=== PATIENT | male | born 1940 | race Caucasian/White ===

== ENCOUNTER → 2018-08-15 16:02 | Outpatient (CLI) | payer MEDICARE, OTHER, SELFPAY ==
[2018-08-15 18:20] LABS: D Dimer 898 ng/mL (<230)
[2018-08-15 18:27] LABS: Erythrocyte Sedimentation Rate 14 MM/HR (0-15)
[2018-08-15 18:29] LABS: Fibrinogen 323 mg/dL (211-428)
[2018-08-15 18:38] LABS: Creatine Kinase 88 U/L (55-170)
[2018-08-15 18:54] LABS: C-Reactive Protein Quant < 0.5 mg/dL (<1.0)
== END ==
PROVIDERS: Family Provider Family Medicine; PCP Student in an Organized Health Care Education/Training Program; Visit Provider Student in an Organized Health Care Education/Training Program
DX: I26.99 Other pulmonary embolism without acute cor pulmonale (principal); R68.89 Other general symptoms and signs
CPT/HCPCS: 36415; 82550; 85379; 85384; 85651; 86140

== ENCOUNTER → 2018-08-21 09:49 | Outpatient (CLI) | payer MEDICARE, OTHER, SELFPAY ==
--- NOTE | 2018-08-21 | DI.CT.S_ITS ---
PROCEDURE: CT ANGIO CHEST PE PROTOCOL INDICATIONS: SHORTNESS OF BREATH TECHNIQUE: After the administration of intravenous contrast, 2 mm thick sections acquired from the pulmonary apices to the posterior costophrenic angles. 3-dimensional maximum intensity projection (MIP) coronal and sagittal reformats were then acquired through the thorax. For radiation dose reduction, the following was used: automated exposure control, adjustment of mA and/or kV according to patient size. COMPARISON: None. FINDINGS: Image quality: Excellent. Pulmonary arteries: Pulmonary arteries are normal in size, and demonstrate no intraluminal filling defects to suggest central pulmonary embolism. Lungs and pleura: Lungs are mildly edematous. No pleural effusions or pneumothorax. Central and peripheral airways are patent. Mediastinum: Heart size is normal, without pericardial effusion. No mediastinal or hilar adenopathy. Thoracic aorta is normal in caliber and enhancement. Esophagus is normal in caliber, without hiatal hernia. Bones and chest wall: No suspicious bony lesions. Ribs and thoracic spine appear intact throughout. Thyroid gland appears normal where well seen. No axillary or supraclavicular adenopathy. Abdomen: Visualized upper abdominal solid organs appear normal in the early arterial phase of enhancement. IMPRESSION: Mild pulmonary edema pattern, no pleural effusion found. No pulmonary embolus identified. The Dictated by: Jesse Salas M.D. on 08/21/2018 at 10:58 Approved by: Jesse Salas M.D. on 08/21/2018 at 11:05
[2018-08-21 11:26] LABS: Blood Urea Nitrogen 18 mg/dL (9-20); Estimated Glomerular Filt Rate > 60.0 mL/min (>60)
== END ==
PROVIDERS: PCP Student in an Organized Health Care Education/Training Program; Visit Provider Student in an Organized Health Care Education/Training Program
DX: Z01.812 Encounter for preprocedural laboratory examination (principal); R06.02 Shortness of breath; J81.1 Chronic pulmonary edema
CPT/HCPCS: 36415; 71275; 82565; 84520; Q9967

== ENCOUNTER → 2018-10-07 07:48 | Outpatient (CLI) | payer MEDICARE, OTHER, SELFPAY ==
--- NOTE | 2018-10-07 07:49 | DI.ECHO.S_ITS ---
[place] [facility]---------+ [facility] +---------+ : : [address] : : : : [id number] : : : : Phone: [phone]+ Echocardiogram Report + + :Name: ORESTES AYALA Study Date: 10/07/2018 Height: 70 in : :[facility] Weight: 183 lb : : Gender: Male BSA: 2.0 m2 : :: 1940 Age: 78 yrs BP: 130/62 mmHg: :Reason For Study: SOB : : Performed By: Landy Gonsalez : :Referring: MURPHY GILBERT : + + Interpretation Summary The left ventricle is normal in size. The ejection fraction is estimated to be 55-60%. Diastolic parameters suggest a relaxation abnormality of the left ventricle, consistent with probable normal filling pressures. The right ventricle is normal in size and function. There is mild mitral regurgitation. There is mild aortic regurgitation. Pulmonary artery pressures cannot be estimated because of the lack of a measurable TR jet velocity but the IVC suggests a CVP of around 3 mmHg. The ascending aorta is mild-moderately enlarged without signfiicant change from the prior echo. Comparison is made with the echocardiogram of 08/12/14. No significant change. Procedure: A two-dimensional transthoracic echocardiogram with color flow and Doppler was performed. The study quality was technically adequate. Comparison is made with the echocardiogram of 08/12/14. The patient was in normal sinus rhythm during the exam. The patient had occasional PVCs during the exam. Left Ventricle: The left ventricle is normal in size. Left ventricular wall thickness is borderline increased. The ejection fraction is estimated to be 55-60%. There are no obvious focal wall motion abnormalities noted but poor endocardial definition reduces the sensitivity for the detection of such. Diastolic parameters suggest a relaxation abnormality of the left ventricle, consistent with probable normal filling pressures. Right Ventricle: The right ventricle is normal in size and function. Atria: The left atrium is borderline dilated. The right atrium is normal in size. There is no Doppler evidence for an interatrial shunt. Mitral Valve: The mitral valve leaflets appear normal. There is no evidence of stenosis, fluttering, or prolapse. There is mild mitral valve prolapse. There is prolapse of the posterior mitral valve leaflet(s). There is mild mitral regurgitation. Aortic Valve: The aortic valve is trileaflet. There is mild aortic valve sclerosis. The aortic valve opens well. There is no aortic valve stenosis. There is mild aortic regurgitation. Tricuspid Valve: The tricuspid valve is normal. There is mild tricuspid regurgitation. Pulmonary artery pressures cannot be estimated because of the lack of a measurable TR jet velocity but the IVC suggests a CVP of around 3 mmHg. Pulmonic Valve: The pulmonic valve is not well seen, but is grossly normal. There is trace pulmonic regurgitation. Great Vessels: The aortic root is normal size. The ascending aorta is mild- moderately enlarged. The aortic arch is normal in size. The pulmonary is not well visualized. The IVC is of normal diameter and collapses greater than 50% with a sniff. This suggests a low right atrial pressure of 3 mm Hg. Pericardium/ Pleura There is no pericardial effusion. There is no pleural effusion. MMode/2D Measurements & Calculations LVIDd: 4.6 cm LVOT diam: 2.0 cm LVIDs: 2.6 cm Ao root diam: 3.5 cm FS: 44.0 % asc Aorta Diam: 4.1 cm EPSS: 0.83 cm Ao Arch Diam (Prox Trans): 2.7 cm IVSd: 1.1 cm LVPWd: 0.89 cm LV bradford. diameter/BSA (cm/m^2): 2.3 LV sys. diameter/BSA (cm/m^2): 1.3 LA A2 area: 24.0 cm2 RA long axis: 4.9 cm LA A4 area: 26.7 cm2 RA area: 20.0 cm2 LA length (vol): 6.3 cm RA vol: 69.0 ml LA vol: 86.7 ml RA : 34.3 ml/m2 LA vol index: 43.1 ml/m2 IVC diam: 1.1 cm RVD1 (basal): 4.5 cm RVD2 (mid): 3.3 cm TAPSE: 2.7 cm Doppler Measurements & Calculations Ao V2 max: 134.7 cm/sec LVOT Max Dylan: 83.7 cm/sec Ao V2 mean: 93.3 cm/sec LV V1 max P.8 mmHg Ao max P.3 mmHg LV V1 VTI: 19.7 cm Ao mean P.9 mmHg PORSCHE(I,D): 2.2 cm2 Ao V2 VTI: 30.0 cm PORSCHE(V,D): 2.0 cm2 sev ratio: 0.66 PORSCHE indexed to BSA (cm^2/m^2): 1.1 AI P1/2t: 921.4 msec AI dec slope: 117.7 cm/sec2 MV E max dylan: 59.5 cm/sec TR max dylan: 215.2 cm/sec MV A max dylan: 78.4 cm/sec TR max P.5 mmHg MV E/A: 0.76 PA V2 max: 64.5 cm/sec Med Peak E' Dylan: 4.6 cm/sec PA V2 mean: 41.6 cm/sec E/E' med: 13.0 PA mean P.79 mmHg Lat Peak E' Dylan: 5.6 cm/sec PA Accel Time: 0.10 sec E/E' lat: 10.7 E/e' average: 11.8 MV P1/2t: 62.2 msec MV P1/2t max dylan: 59.5 cm/sec SV(LVOT): 64.7 ml MVA(P1/2t): 3.5 cm2 Electronically signed by: Alcon Chau M.D. on Reading Physician:10/07/2018 10:28 PM
== END ==
PROVIDERS: PCP Student in an Organized Health Care Education/Training Program; Visit Provider Student in an Organized Health Care Education/Training Program
DX: I08.3 Combined rheumatic disorders of mitral, aortic and tricuspid valves (principal); I77.89 Other specified disorders of arteries and arterioles; R06.02 Shortness of breath
CPT/HCPCS: 93306

== ENCOUNTER → 2019-03-12 16:37 | Outpatient (CLI) | payer MEDICARE, OTHER, SELFPAY ==
[2019-03-18 14:21] LABS: Acetylcholine receptor antibod <1
== END ==
PROVIDERS: PCP Student in an Organized Health Care Education/Training Program; Visit Provider Student in an Organized Health Care Education/Training Program
DX: R06.02 Shortness of breath (principal)
CPT/HCPCS: 36415; 83519

== ENCOUNTER → 2019-10-06 13:19 | Outpatient (CLI) | payer MEDICARE, OTHER, SELFPAY ==
[2019-10-06 15:43] LABS: Vitamin B12 629 pg/mL (239-931)
== END ==
PROVIDERS: PCP Student in an Organized Health Care Education/Training Program; Referring Provider Student in an Organized Health Care Education/Training Program; Visit Provider Student in an Organized Health Care Education/Training Program
DX: R06.02 Shortness of breath (principal); R53.83 Other fatigue
CPT/HCPCS: 36415; 82607

== ENCOUNTER → 2020-12-14 15:06 | Outpatient (CLI) | payer MEDICARE, OTHER, SELFPAY ==
[2020-12-14 17:23] LABS: BUN Creatinine Ratio 22.9 (6-22); Blood Urea Nitrogen 22 mg/dL (9-20); Calcium 9.4 mg/dL (8.4-10.2); Carbon Dioxide 28 mmol/L (22-32); Chloride 106 mmol/L (98-107); Creatine Kinase 82 U/L (55-170); Estimated Glomerular Filt Rate > 60.0 mL/min (>60); Glucose 88 mg/dL (80-110); HEMOLYSIS 31 (0-50); Potassium 4.1 mmol/L (3.4-5.1); Sodium 141 mmol/L (137-145)
[2020-12-14 17:56] LABS: Testosterone 254 ng/dL (71.8-623)
[2020-12-15 17:45] LABS: Calcium 9.3 mg/dL (8.6-10.2); Parathyroid Hormone, Intact 36 pg/mL (15-65); RNP Antibodies 0.3 AI (0.0-0.9)
== END ==
PROVIDERS: PCP Student in an Organized Health Care Education/Training Program; Referring Provider Student in an Organized Health Care Education/Training Program; Visit Provider Student in an Organized Health Care Education/Training Program
DX: M62.81 Muscle weakness (generalized) (principal); R06.02 Shortness of breath; Z79.1 Long term (current) use of non-steroidal anti-inflammatories (NSAID)
CPT/HCPCS: 80048; 82310; 82550; 83970; 84403; 86235

== ENCOUNTER → 2021-05-26 15:31 | Outpatient (CLI) | payer MEDICARE, OTHER, SELFPAY ==
[2021-05-26 16:05] LABS: COVID19 -Nasal RAPID Negative (Negative)
== END ==
PROVIDERS: PCP Student in an Organized Health Care Education/Training Program; Visit Provider Physician Assistant
DX: Z20.822 Contact with and (suspected) exposure to COVID-19 (principal)
CPT/HCPCS: 87635

== ENCOUNTER → 2021-06-16 08:30 | Outpatient (CLI) | payer MEDICARE, OTHER, SELFPAY ==
--- NOTE | 2021-06-16 08:32 | DI.MRI.S_ITS ---
PROCEDURE: MR LUMBAR SPINE WO CON INDICATIONS: Low back pain with radicular sx and neuroclaudication TECHNIQUE: Noncontrast sagittal T1 spin echo and T2 fast echo, sagittal STIR, axial T1 and T2 fast spin echo through the lumbar spine. In cases with scoliosis, additional coronal T2 fast spin echo may be performed. COMPARISON: None. FINDINGS: Image quality: Excellent. Alignment and Curvature: S-shaped scoliotic curvature is seen. There is minimal retrolisthesis at L1-L2, with mild retrolisthesis at L2-L3 and minimal retrolisthesis at L3-L4. Bone Marrow: Marrow is of normal overall signal. No acute vertebral body compression fractures. Spinal Cord: Conus medullaris terminates at the L1 level. Visualized cord demonstrates normal signal and size. Paraspinous Soft Tissues: No paravertebral masses. Incidental note is made of a circumaortic left renal vein. T12-L1: Moderate loss of disc height is seen. Loss of disc signal is seen. Partially bridging anterior osteophytes are seen. No significant neural foraminal or central canal narrowing can be seen. L1-L2: At least moderate loss of disc height and disc signal can be seen. Reactive marrow endplate changes are seen, which are hyperintense on T1-weighted and T2-weighted imaging and most consistent with fatty metaplasia (Modic type II changes). Bridging endplate osteophytes are seen. Mild generalized disc bulge is seen. Moderate bilateral neural foraminal narrowing can be seen, left worse than right. Minimal central canal narrowing is seen. L2-L3: At least moderate loss of disc height and disc signal can be seen. Reactive marrow endplate changes are seen, which are hyperintense on T1-weighted and T2-weighted imaging and most consistent with fatty metaplasia (Modic type II changes). Moderate generalized disc bulge is seen. There is a superimposed central disc protrusion. At least moderate facet hypertrophy can be seen. Fluid is seen within the facet joints themselves. There is at least moderate bilateral neural foraminal narrowing seen, right worse than. Moderate central canal narrowing is seen. L3-L4: At least moderate loss of disc height and disc signal can be seen. Reactive marrow endplate changes are seen, which are hyperintense on T1-weighted and T2-weighted imaging and most consistent with fatty metaplasia (Modic type II changes). Moderate generalized disc bulge is seen. Moderate to prominent facet hypertrophy is seen. There is at least moderate bilateral neural foraminal narrowing seen, left worse than right. A minimal degree of compression can be seen upon the exiting L3 nerve roots. Moderate central canal narrowing is seen. L4-L5: At least moderate loss of disc height and disc signal can be seen. Reactive marrow endplate changes are seen, which are hyperintense on T1-weighted and T2-weighted imaging and most consistent with fatty metaplasia (Modic type II changes). Mild to moderate disc bulge is seen. Moderate facet joint hypertrophy is seen. There is moderate to severe left-sided and at least moderate right-sided neural foraminal narrowing seen. A degree of compression can be seen upon the exiting L4 nerve roots, left worse than right. Moderate central canal narrowing is seen. L5-S1: The disc height is well-preserved. Loss of disc signal is seen at this level. Milder degenerative changes are seen elsewhere. At least moderate facet hypertrophy is seen, left worse than right. There is at least moderate bilateral neural foraminal narrowing seen at this level. A mild degree of compression can be seen upon the exiting L5 nerve roots. Moderate central canal narrowing is seen. IMPRESSION: Multiple levels of relatively prominent lumbar spine degenerative change can be seen. Dictated by: Tommy Boyce M.D. on 06/16/2021 at 10:11 Approved by: Tommy Boyce M.D. on 06/16/2021 at 10:16
== END ==
PROVIDERS: PCP Student in an Organized Health Care Education/Training Program; Referring Provider Student in an Organized Health Care Education/Training Program; Visit Provider Student in an Organized Health Care Education/Training Program
DX: M47.26 Other spondylosis with radiculopathy, lumbar region (principal); M47.27 Other spondylosis with radiculopathy, lumbosacral region; M48.062 Spinal stenosis, lumbar region with neurogenic claudication
CPT/HCPCS: 72148

== ENCOUNTER → 2021-07-01 08:06 | Outpatient (CLI) | payer MEDICARE, OTHER, SELFPAY ==
--- NOTE | 2021-07-01 08:08 | DI.MRI.S_ITS ---
PROCEDURE: MR CERVICAL SPINE WO CON INDICATIONS: Worsening sensory and motor sx of arms and chest TECHNIQUE: Noncontrast sagittal T1 spin echo and T2 fast spin echo, sagittal STIR, foraminal oblique sagittal T2 fast spin echo, and axial gradient echo or T2 fast spin echo through the cervical spine. COMPARISON: [facility], MR, MR LUMBAR SPINE WO CON, 06/16/2021, 8:48. [facility], MR, MR THORACIC SPINE WO CON, 07/01/2021, 8:55. FINDINGS: Image quality: This examination is limited by involuntary motion artifact. Alignment and Curvature: There is straightening of the normal cervical lordosis. No focal AP alignment abnormality is seen. Bone Marrow: Marrow demonstrates normal overall signal. Spinal Cord: Visualized spinal cord has normal size and signal. No cerebellar tonsillar herniation. Paraspinous Soft Tissues: No paravertebral masses. Prevertebral soft tissues are normal in thickness. C2-C3: The disc height is well-preserved. Loss of disc signal is seen at this level. A mild degree of generalized disc osteophyte complex is seen. There is moderate left-sided and mild right-sided facet hypertrophy seen. No significant neural foraminal or central canal narrowing can be seen. C3-C4: Moderate to severe loss of disc height and disc signal can be seen. At least moderate disc osteophyte complex is seen, with a central disc osteophyte protrusion. There is moderate right-sided and moderate to severe left-sided neural foraminal narrowing. Moderate bilateral neural foraminal narrowing is seen. Mild to moderate central canal narrowing is seen. There is associated mass effect upon the ventral spinal cord. C4-C5: Moderate loss of disc height is seen. Loss of disc signal is seen. At least moderate disc osteophyte complex is seen, which is eccentric to the left side. Uncovertebral joint hypertrophy is seen at this level. At least moderate facet hypertrophy is seen at this level. There is moderate to severe bilateral neural foraminal narrowing seen, left worse than right. Moderate to severe central canal narrowing is seen, with associated ventral cord flattening. C5-C6: Moderate loss of disc height is seen. Loss of disc signal is seen. At least moderate disc osteophyte complex is seen, with a central/right disc osteophyte protrusion. Uncovertebral joint hypertrophy is seen at this level. Mild to moderate facet hypertrophy is seen. There is moderate to severe bilateral neural foraminal narrowing seen. At least moderate central canal narrowing is seen. There is associated mass effect upon the ventral spinal cord. C6-C7: Moderate loss of disc height is seen. Loss of disc signal is seen. At least moderate disc osteophyte complex is seen, with a central disc osteophyte protrusion. Uncovertebral joint hypertrophy is seen at this level. Mild to moderate facet hypertrophy is seen at this level. There is moderate to severe left-sided and at least moderate right-sided neural foraminal narrowing. Moderate central canal narrowing is seen. There is associated mass effect upon the ventral spinal cord. C7-T1: Moderate loss of disc height is seen. Loss of disc signal is seen. At least moderate disc osteophyte complex is seen, which is eccentric to the left. There is a left foraminal disc osteophyte protrusion seen, as on series four image 36. There is moderate to severe bilateral neural foraminal narrowing seen. Mild to moderate central canal narrowing is seen at this level. IMPRESSION: Multiple levels of relatively prominent cervical spine degenerative change are seen, which are overall worst at the C4-C5 level. Straightening of the normal cervical lordosis is seen, which is commonly observed in patients with muscular spasm. Dictated by: Tommy Boyce M.D. on 07/01/2021 at 9:08 Approved by: Tommy Boyce M.D. on 07/01/2021 at 9:13
--- NOTE | 2021-07-01 08:08 | DI.MRI.S_ITS ---
PROCEDURE: MR THORACIC SPINE WO CON INDICATIONS: Worsening sensory and motor sx of arms and chest TECHNIQUE: Noncontrast sagittal T1 spine echo and T2 fast spin echo, sagittal STIR, axial T1 and T2 fast spin echo through the thoracic spine. COMPARISON: None. FINDINGS: Image quality: Excellent. Alignment and Curvature: There is normal bony alignment. Bone Marrow: Marrow is of normal overall signal. No acute vertebral body compression fractures. Spinal Cord: There is slight dilatation of the spinal cord central canal to 1-2 millimeters from level of the T4-T9 vertebral bodies. Paraspinous Soft Tissues: No paravertebral masses. Miscellaneous: Mild degenerative disc changes noted throughout the thoracic spine. Mild facet arthropathy noted throughout the mid and lower thoracic spine. No central canal narrowing. Moderate right and mild left T10-T11 neural foraminal narrowing. No neural compression. IMPRESSION: 1. 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 Recommend MRI of the thoracic spine with contrast for additional evaluation. 2. Multilevel degenerative disc disease. 3. Multilevel facet arthropathy. 4. No severe central canal narrowing. 5. No severe neural foraminal narrowing. 6. No neural compression. Dictated by: Janell Hilario MD, PhD on 07/01/2021 at 11:41 Approved by: Janell Hilario MD, PhD on 07/01/2021 at 12:00
== END ==
PROVIDERS: PCP Student in an Organized Health Care Education/Training Program; Referring Provider Student in an Organized Health Care Education/Training Program; Visit Provider Student in an Organized Health Care Education/Training Program
DX: M47.814 Spondylosis without myelopathy or radiculopathy, thoracic region (principal); M47.812 Spondylosis without myelopathy or radiculopathy, cervical region; M48.062 Spinal stenosis, lumbar region with neurogenic claudication; M51.34 Other intervertebral disc degeneration, thoracic region; M48.04 Spinal stenosis, thoracic region; R20.2 Paresthesia of skin; R29.898 Other symptoms and signs involving the musculoskeletal system
CPT/HCPCS: 72141; 72146

== ENCOUNTER → 2021-08-26 13:34 | Outpatient (CLI) | payer MEDICARE, OTHER, SELFPAY ==
[2021-08-26 13:49] LABS: Add Manual Diff / Slide Review NO; Basophils Absolute Auto 0 /uL (0-100); Basophils Percent Auto 0.3 % (0-2); Eosinophils Absolute Auto 0 /uL (0-450); Eosinophils Percent Auto 0.2 % (2-4); Hematocrit 40.5 % (41-53); Hemoglobin 13.9 g/dL (13.5-17.5); Lymphocytes Absolute Auto 1600 /uL (1100-4500); Lymphocytes Percent Auto 18.9 % (25-40); Mean Corpuscular HGB Conc 34.4 % (30-36); Mean Corpuscular Hemoglobin 31.1 PG (26-34); Mean Corpuscular Volume 90.3 fL (80-100); Monocytes Absolute Auto 400 /uL (0-900); Monocytes Percent Auto 5.1 % (3-14); Neutrophils Absolute Auto 6200 /uL (1500-7000); Neutrophils Percent Auto 75.5 % (50-75); Platelet Count 256 X10^3/uL (150-400); Red Blood Cell Count 4.48 X10^6/uL (4.5-5.9); Red Cell Distribution Width 13.9 % (11.6-14.8); White Blood Cell Count 8.2 X10^3/uL (4.5-11.0)
[2021-08-26 14:07] LABS: Erythrocyte Sedimentation Rate 61 MM/HR (0-15)
[2021-08-26 14:08] LABS: C-Reactive Protein Quant 1.9 mg/dL (<1.0)
== END ==
PROVIDERS: PCP Student in an Organized Health Care Education/Training Program; Referring Provider Neurological Surgery; Visit Provider Neurological Surgery
DX: M53.3 Sacrococcygeal disorders, not elsewhere classified (principal)
CPT/HCPCS: 36415; 85025; 85651; 86140

== ENCOUNTER → 2022-02-14 08:52 | Outpatient (CLI) | payer MEDICARE, OTHER, SELFPAY ==
[2022-02-14 10:05] LABS: Erythrocyte Sedimentation Rate 17 MM/HR (0-15)
[2022-02-14 11:12] LABS: Alanine Aminotransferase 23 IU/L (<50); Albumin 3.7 g/dL (3.5-5.0); Albumin Globulin Ratio 1.2 (1.0-2.8); Alkaline Phosphatase 52 U/L (38-126); Aspartate Aminotransferase 26 IU/L (17-59); Bilirubin Total 0.5 mg/dL (0.2-1.3); Blood Urea Nitrogen 18 mg/dL (9-20); C-Reactive Protein Quant < 0.5 mg/dL (<1.0); Carbon Dioxide 28 mmol/L (22-32); Chloride 108 mmol/L (98-107); Cholesterol 225 mg/dL (140-199); Estimated Glomerular Filt Rate > 60 mL/min (>60); Globulin 3.2 g/dL (1.7-4.1); Glucose 87 mg/dL (80-110); HDL Cholesterol 62 mg/dL (40-60); HEMOLYSIS < 15 (0-50); LDL Cholesterol Calculated 143 mg/dL (<100); Potassium 3.7 mmol/L (3.4-5.1); Sodium 140 mmol/L (137-145); Total Protein 6.9 g/dL (6.3-8.2); Triglycerides 102 mg/dL (35-150)
[2022-02-14 11:38] LABS: TSH w/ Reflex to FT4 2.72 uIU/mL (0.47-4.68)
== END ==
PROVIDERS: PCP Internal Medicine; Referring Provider Internal Medicine; Visit Provider Internal Medicine
DX: I10 Essential (primary) hypertension (principal); E78.2 Mixed hyperlipidemia; M35.3 Polymyalgia rheumatica
CPT/HCPCS: 36415; 80053; 80061; 84443; 85651; 86140

== ENCOUNTER → 2022-09-06 11:29 | Outpatient (CLI) | payer MEDICARE, OTHER, SELFPAY ==
[2022-09-06 11:43] LABS: Hematocrit 44.2 % (41-53); Hemoglobin 14.9 g/dL (13.5-17.5); Mean Corpuscular HGB Conc 33.8 % (30-36); Mean Corpuscular Hemoglobin 31.5 PG (26-34); Mean Corpuscular Volume 93.3 fL (80-100); Platelet Count 268 X10^3/uL (150-400); Red Blood Cell Count 4.74 X10^6/uL (4.5-5.9); Red Cell Distribution Width 13.9 % (11.6-14.8); White Blood Cell Count 8.7 X10^3/uL (4.5-11.0)
[2022-09-06 11:59] LABS: Erythrocyte Sedimentation Rate 12 MM/HR (0-15)
[2022-09-06 12:23] LABS: Alanine Aminotransferase 35 IU/L (<50); Albumin 4.2 g/dL (3.5-5.0); Albumin Globulin Ratio 1.2 (1.0-2.8); Alkaline Phosphatase 54 U/L (38-126); Aspartate Aminotransferase 32 IU/L (17-59); BUN Creatinine Ratio 29.8 (6-22); Bilirubin Total 0.7 mg/dL (0.2-1.3); Blood Urea Nitrogen 25 mg/dL (9-20); C-Reactive Protein Quant < 0.5 mg/dL (<1.0); Calcium 9.4 mg/dL (8.4-10.2); Carbon Dioxide 23 mmol/L (22-32); Chloride 108 mmol/L (98-107); Cholesterol 239 mg/dL (140-199); Estimated Glomerular Filt Rate > 60 mL/min (>60); Globulin 3.4 g/dL (1.7-4.1); Glucose 145 mg/dL (80-110); HDL Cholesterol 79 mg/dL (40-60); HEMOLYSIS < 15 (0-50); LDL Cholesterol Calculated 134 mg/dL (<100); Potassium 4.2 mmol/L (3.4-5.1); Sodium 141 mmol/L (137-145); Total Protein 7.6 g/dL (6.3-8.2); Triglycerides 130 mg/dL (35-150)
== END ==
PROVIDERS: PCP Internal Medicine; Referring Provider Internal Medicine; Visit Provider Internal Medicine
DX: E78.2 Mixed hyperlipidemia (principal); I10 Essential (primary) hypertension; M35.3 Polymyalgia rheumatica
CPT/HCPCS: 36415; 80053; 80061; 85027; 85651; 86140

== ENCOUNTER → 2023-07-26 10:09 | Outpatient (CLI) | payer MEDICARE, OTHER, SELFPAY ==
[2023-07-26 10:57] LABS: Hematocrit 42.9 % (41-53); Hemoglobin 14.6 g/dL (13.5-17.5); Mean Corpuscular HGB Conc 34.1 % (30-36); Mean Corpuscular Hemoglobin 31.5 PG (26-34); Mean Corpuscular Volume 92.3 fL (80-100); Platelet Count 247 X10^3/uL (150-400); Red Blood Cell Count 4.65 X10^6/uL (4.5-5.9); Red Cell Distribution Width 13.8 % (11.6-14.8); White Blood Cell Count 7.1 X10^3/uL (4.5-11.0)
[2023-07-26 11:19] LABS: Erythrocyte Sedimentation Rate 10 MM/HR (0-15)
[2023-07-26 11:36] LABS: Alanine Aminotransferase 16 IU/L (<50); Albumin 4.2 g/dL (3.5-5.0); Albumin Globulin Ratio 1.2 (1.0-2.8); Alkaline Phosphatase 63 U/L (38-126); Aspartate Aminotransferase 26 IU/L (17-59); BUN Creatinine Ratio 19.8 (6-22); Bilirubin Total 0.8 mg/dL (0.2-1.3); Blood Urea Nitrogen 18 mg/dL (9-20); C-Reactive Protein Quant < 0.5 mg/dL (<1.0); Calcium 9.2 mg/dL (8.4-10.2); Carbon Dioxide 26 mmol/L (22-32); Chloride 107 mmol/L (98-107); Cholesterol 211 mg/dL (140-199); Estimated Glomerular Filt Rate > 60 mL/min (>60); Globulin 3.4 g/dL (1.7-4.1); Glucose 96 mg/dL (80-110); HDL Cholesterol 44 mg/dL (40-60); HEMOLYSIS < 15 (0-50); LDL Cholesterol Calculated 133 mg/dL (<100); Potassium 4.1 mmol/L (3.4-5.1); Sodium 143 mmol/L (137-145); Total Protein 7.6 g/dL (6.3-8.2); Triglycerides 169 mg/dL (35-150)
[2023-07-26 11:55] LABS: Prostate Specific Antigen 0.687 ng/mL (0.10-4.00)
[2023-07-26 12:04] LABS: TSH w/ Reflex to FT4 2.64 uIU/mL (0.47-4.68)
== END ==
PROVIDERS: PCP Internal Medicine; Referring Provider Internal Medicine; Visit Provider Internal Medicine
DX: M06.00 Rheumatoid arthritis without rheumatoid factor, unspecified site (principal); E78.5 Hyperlipidemia, unspecified; N40.0 Benign prostatic hyperplasia without lower urinary tract symptoms; M35.3 Polymyalgia rheumatica; E78.2 Mixed hyperlipidemia
CPT/HCPCS: 36415; 80053; 80061; 84153; 84443; 85027; 85651; 86140

== ENCOUNTER → 2024-04-16 13:34 | Outpatient (CLI) | payer MEDICARE, OTHER, SELFPAY ==
[2024-04-16 14:16] LABS: Hemoglobin A1C% w Est Avg Glu 5.2 % (4.0-6.0)
[2024-04-16 14:37] LABS: BUN Creatinine Ratio 18.7 (6-22); Blood Urea Nitrogen 17 mg/dL (9-20); Calcium 9.6 mg/dL (8.4-10.2); Carbon Dioxide 26 mmol/L (22-32); Chloride 107 mmol/L (98-107); Estimated Glomerular Filt Rate > 60 mL/min (>60); Glucose 126 mg/dL (80-110); HEMOLYSIS < 15 (0-50); Potassium 4.5 mmol/L (3.4-5.1); Sodium 140 mmol/L (137-145)
[2024-04-16 15:08] LABS: TSH w/ Reflex to FT4 1.58 uIU/mL (0.47-4.68)
[2024-04-16 15:25] LABS: Vitamin B12 Reflex MMA if <400 412 pg/mL (239-931)
[2024-04-21 14:38] LABS: Albumin 3.9 g/dL (2.9-4.4); Alpha-1-Globulin 0.2 g/dL (0.0-0.4); Alpha-2-Globulin 0.6 g/dL (0.4-1.0); Gamma Globulin 1.2 g/dL (0.4-1.8); Protein, Total 6.9 g/dL (6.0-8.5)
== END ==
PROVIDERS: PCP Internal Medicine; Referring Provider Internal Medicine; Visit Provider Internal Medicine
DX: R73.01 Impaired fasting glucose (principal); E78.2 Mixed hyperlipidemia; R77.9 Abnormality of plasma protein, unspecified; E53.8 Deficiency of other specified B group vitamins; M06.00 Rheumatoid arthritis without rheumatoid factor, unspecified site; M35.3 Polymyalgia rheumatica; I10 Essential (primary) hypertension; J30.9 Allergic rhinitis, unspecified; H90.3 Sensorineural hearing loss, bilateral; K59.01 Slow transit constipation; G62.9 Polyneuropathy, unspecified
CPT/HCPCS: 36415; 80048; 82607; 83036; 84155; 84165; 84443

== ENCOUNTER → 2024-06-12 09:31 | Outpatient (CLI) | payer MEDICARE, OTHER, SELFPAY ==
[2024-06-14 15:08] LABS: ANA Screen, IFA Positive (.)
== END ==
PROVIDERS: PCP Internal Medicine; Referring Provider Internal Medicine; Visit Provider Internal Medicine
DX: M35.3 Polymyalgia rheumatica (principal); M06.00 Rheumatoid arthritis without rheumatoid factor, unspecified site
CPT/HCPCS: 36415; 86038

== ENCOUNTER → 2024-08-11 09:44 | Outpatient (CLI) | payer MEDICARE, OTHER, SELFPAY ==
[2024-08-11 10:21] LABS: Hematocrit 41.7 % (41-53); Hemoglobin 14.5 g/dL (13.5-17.5); Mean Corpuscular HGB Conc 34.8 % (30-36); Mean Corpuscular Volume 94.7 fL (80-100); Platelet Count 249 X10^3/uL (150-400); Red Cell Distribution Width 13.2 % (11.6-14.8); White Blood Cell Count 6.2 X10^3/uL (4.5-11.0)
[2024-08-11 10:44] LABS: Alanine Aminotransferase 19 IU/L (<50); Albumin 4.4 g/dL (3.5-5.0); Albumin Globulin Ratio 1.6 (1.0-2.8); Alkaline Phosphatase 67 U/L (38-126); Aspartate Aminotransferase 26 IU/L (17-59); BUN Creatinine Ratio 23.5 (6-22); Bilirubin Total 0.6 mg/dL (0.2-1.3); Blood Urea Nitrogen 24 mg/dL (9-20); Calcium 9.3 mg/dL (8.4-10.2); Carbon Dioxide 22 mmol/L (22-32); Chloride 110 mmol/L (98-107); Cholesterol 225 mg/dL (140-199); Estimated Glomerular Filt Rate > 60 mL/min (>60); Globulin 2.8 g/dL (1.7-4.1); Glucose 92 mg/dL (80-110); HDL Cholesterol 54 mg/dL (40-60); HEMOLYSIS < 15 (0-50); LDL Cholesterol Calculated 154 mg/dL (<100); Potassium 4.5 mmol/L (3.4-5.1); Sodium 141 mmol/L (137-145); Total Protein 7.2 g/dL (6.3-8.2); Triglycerides 86 mg/dL (35-150)
[2024-08-11 11:15] LABS: Prostate Specific Antigen 0.883 ng/mL (0.10-4.00)
== END ==
PROVIDERS: PCP Internal Medicine; Referring Provider Internal Medicine; Visit Provider Internal Medicine
DX: N13.8 Other obstructive and reflux uropathy (principal); E78.2 Mixed hyperlipidemia; N40.1 Benign prostatic hyperplasia with lower urinary tract symptoms; I10 Essential (primary) hypertension
CPT/HCPCS: 80053; 80061; 84153; 85027

== ENCOUNTER → 2025-02-24 13:35 | Outpatient (CLI) | payer MEDICARE, OTHER, SELFPAY ==
[2025-02-24 14:26] LABS: Hemoglobin A1C% w Est Avg Glu 5.4 % (4.0-6.0)
[2025-02-24 15:45] LABS: Vitamin B12 > 1000 pg/mL (239-931)
[2025-02-26 14:08] LABS: Albumin 3.6 g/dL (2.9-4.4); Gamma Globulin 1.1 g/dL (0.4-1.8)
== END ==
PROVIDERS: PCP Internal Medicine; Referring Provider Internal Medicine; Visit Provider Student in an Organized Health Care Education/Training Program
DX: R27.0 Ataxia, unspecified (principal)
CPT/HCPCS: 36415; 82390; 82525; 82607; 83036; 83921; 84155; 84165

== ENCOUNTER → 2025-02-24 15:19 | Outpatient (CLI) | payer MEDICARE, OTHER, SELFPAY | LOC: RESP 15:20 | PROVIDERS: PCP Internal Medicine; Referring Provider Internal Medicine; Visit Provider Internal Medicine | DX: R06.09 Other forms of dyspnea (principal); R27.0 Ataxia, unspecified; R94.2 Abnormal results of pulmonary function studies | CPT/HCPCS: 36415; 82390; 82525; 82607; 83036; 83921; 84155; 84165; 94060; 94618; 94726; 94729 ==